=== PATIENT | male | born 2005 | race Two or more races ===

== ENCOUNTER 2023-09-15 10:53 | Emergency (ER) | payer SELFPAY ==
[2023-09-15] MEDS: Fluorescein 1 MG Ophth Strip EYEBOTH ONE (11:45)
[2023-09-15] MEDS: Tetracaine HCl/PF 0.5% 4 ML Bottle EYERT ONE (11:45)
== END 2023-09-15 12:00 | disposition home or self-care (01) ==
LOC: JD.ED 10:53
DX: T15.01XA Foreign body in cornea, right eye, initial encounter (principal); W44.8XXA Other foreign body entering into or through a natural orifice, initial encounter; Z79.899 Other long term (current) drug therapy
CPT/HCPCS: 65220; 99283-25; J3490